=== PATIENT | female | born 1980 | race Caucasian/White ===

== ENCOUNTER 2017-11-26 12:32 | Emergency (ER) | payer OTHER | END 2017-11-26 14:39 | disposition home or self-care (01) | LOC: FTE 12:32 | DX: M25.571 Pain in right ankle and joints of right foot (principal) | CPT/HCPCS: 73630; 99283-25 ==

== ENCOUNTER 2018-02-20 06:04 | Day surgery (SDC) | payer OTHER ==
[~2018-02-20 06:04] MED LIST: CEFAZOLIN 2 GM/50 ML (PMX) 50 ML IVPB
[2018-02-20] MEDS: SOD CHLORIDE 0.9% 1,000 ML IV (06:42)
[2018-02-20 07:10] LABS: ADD MAN DIFF? NO
[2018-02-20 07:13] LABS: WHITE BLOOD COUNT 7.1 10^3/ul (4.8-10.8)
[2018-02-20 07:13] LABS: BASOPHILS % 0.1 % (0.0-2.0); EOSINOPHILS # 0.1 10^3/ul (0.0-0.5); EOSINOPHILS % 1.1 % (0.0-7.0); HEMATOCRIT 40.3 % (37.0-47.0); HEMOGLOBIN 13.6 g/dl (12.0-16.0); LYMPHOCYTES # 2.8 10^3/ul (0.8-2.9); LYMPHOCYTES % 39.5 % (15.0-51.0); MEAN CORPUSCULAR HEMOGLOBIN 27.2 pg (29.0-33.0); MEAN CORPUSCULAR HGB CONC 33.7 g/dl (32.0-37.0); MEAN CORPUSCULAR VOLUME 80.6 fl (82.0-101.0); MEAN PLATELET VOLUME 10.2 fl (7.4-10.4); MONOCYTE # 0.5 10^3/ul (0.3-0.9); MONOCYTES % 6.6 % (0.0-11.0); NEUTROPHIL # 3.7 10^3/ul (1.6-7.5); NEUTROPHILS % 52.4 % (39.0-77.0); PLATELET COUNT 290 10^3/UL (140-415); RED CELL DISTRIBUTION WIDTH 12.7 % (11.5-14.5)
[2018-02-20 07:32] LABS: ALANINE AMINOTRANSFERASE 14 IU/L (13-69); ALBUMIN 4.2 g/dl (3.3-4.9); ALBUMIN/GLOBULIN RATIO 1.23; ALKALINE PHOSPHATASE 93 IU/L (42-121); ANION GAP 12 (8-16); ASPARTATE AMINO TRANSFERASE 20 IU/L (15-46); BILIRUBIN,INDIRECT 0.5 mg/dl (0-1.1); BILIRUBIN,TOTAL 0.5 mg/dl (0.2-1.3); BLOOD UREA NITROGEN 11 mg/dl (7-20); CALCIUM 8.7 mg/dl (8.4-10.2); CARBON DIOXIDE 24 mmol/L (21-31); CHLORIDE 110 mmol/L (97-110); CREATININE 0.59 mg/dl (0.44-1.00); GLUCOSE 96 mg/dl (70-220); POTASSIUM 3.6 mmol/L (3.5-5.1); SODIUM 142 mmol/L (135-144); TOTAL PROTEIN 7.6 g/dl (6.1-8.1)
[2018-02-20 07:38] LABS: INR 0.92; PROTIME 12.4 Sec (11.9-14.9)
[2018-02-20 07:39] LABS: PARTIAL THROMBOPLASTIN TIME 29.3 Sec (25.0-35.0)
[2018-02-20] MEDS ORDERED: HYDROmorphONE 1 MG/5 ML IV SYRINGE IV ×2 (08:00)
[2018-02-20] MEDS ORDERED: MEPERIDINE 25 MG INJ IV (08:00)
[2018-02-20] MEDS ORDERED: DIPHENHYDRAMINE 50 MG INJ IV (08:00)
[2018-02-20] MEDS ORDERED: FENTAnyl 50 MCG/ML VIAL IV ×2 (08:00)
[2018-02-20] MEDS ORDERED: METOCLOPRAMIDE 10 MG INJ IV (08:00)
[2018-02-20] MEDS ORDERED: ALBUTEROL 0.083% (NEB) 2.5 MG/3 ML AMP HHN (08:00)
[2018-02-20] MEDS ORDERED: FENTAnyl 50 MCG/ML VIAL (08:17)
[2018-02-20] MEDS ORDERED: PROPOFOL 20 ML (08:33)
[2018-02-20] MEDS ORDERED: ROCURONIUM 50 MG INJ (08:33)
[2018-02-20] MEDS ORDERED: CEFAZOLIN 1 GM INJ (08:33)
[2018-02-20] MEDS ORDERED: LIDOCAINE 100 MG SYRINGE (08:33)
[2018-02-20] MEDS ORDERED: SUGAMMADEX SODIUM 200 MG/2 ML VIAL IV (08:33)
[2018-02-20] MEDS ORDERED: SUCCINYLCHOLINE CHLORIDE 100 MG/5 ML SYG IV (08:33)
[2018-02-20] MEDS: BUPIVACAINE 0.5%/EPI (SDV) 30 ML INJ (08:35)
[2018-02-20] MEDS: ONDANSETRON 4 MG INJ IV (09:29)
[2018-02-20] MEDS: HYDROmorphONE 1 MG/5 ML IV SYRINGE IV (09:30)
[2018-02-20] MEDS ORDERED: HYDROCODONE/APAP (5/325) TAB PO ×2 (09:30)
== END 2018-02-20 11:49 | disposition home or self-care (01) ==
LOC: SDS 06:04
DX: D17.24 Benign lipomatous neoplasm of skin and subcutaneous tissue of left leg (principal)
CPT/HCPCS: 14020; 80053; 85025; 85610; 85730; 88307